=== PATIENT | female | born 1965 | race Caucasian/White ===

== ENCOUNTER 2017-11-22 21:02 | Emergency (ER) | payer MEDICAID ==
[2017-11-22 21:10] VITALS: BMI 27.8
[2017-11-22 21:41] LABS: BILIRUBIN,URINE NEGATIVE (NEGATIVE); BLOOD/HEMOGLOBIN,URINE 3+ (NEGATIVE); GLUCOSE, URINE NEGATIVE (NEGATIVE); KETONES,URINE NEGATIVE (NEGATIVE); LEUKOCYTE ESTERASE ,URINE 1+ (NEGATIVE); NITRITES,URINE NEGATIVE (NEGATIVE); PH,URINE 6.5 (5.0 - 8.0); PROTEIN,URINE 1+ (NEGATIVE); UROBILINOGEN,URINE NORMAL (NORMAL)
[2017-11-22 21:49] LABS: APPEARANCE,URINE CLEAR (CLEAR); BACTERIA,URINE TRACE /HPF (NEGATIVE); COLOR,URINE YELLOW (YELLOW); SQUAMOUS EPITHELIAL CELL,UR FEW /HPF (NEGATIVE)
--- NOTE | 2017-11-22 21:50 | DR.GENAD ---
HPI - PCP Primary Care Physician: NFD - Complaint/Symptoms Chief Complaint Doctors Comments: Patient reports that she injured her right shoulder/elbow four weeks ago and thinks she might have broken something. She admits to pain with movement of right upper extremity. She denies having shoulder evaluated at the time. Chief Complaint:: PT STATES" I FELL DOWN ABOUT 3 WEEKS AGO AND I THINK I BROKE MY ARM OR SOMETHING C/C/C EARS THROAT BURNING WHEN I PEE". PT POINTS TO RT ARM - Source History Provided: Patient - Mode of Arrival Mode of Arrival: Wheelchair - Timing Onset of Chief Complaint: 11/22/17 PMH - PMH Past Medical History: Yes Past Medical History: Hypertension Past Surgical History: Yes Surgical History: , Cholecystectomy, Hysterectomy, Ortho Surgery - Family History History of Family Medical Conditions: Yes Family Medical History: Hypertension - Social History Does patient currently use any type of tobacco product: Yes Have you used tobacco products in the last 12 months: Yes Type of Tobacco Use: Cigarettes Does any household member use tobacco: Yes Alcohol Use: Occasionally Do you use any recreational Drugs:: No Lives With: Family Lives Where: Home - infectious screening In the last 2 months have you had wt loss of >10#?: NO Have you had fever, night sweats or hemotysis?: No Have you traveled outside the country in the last 6 months?: No Isolation: Standard ROS - Review of Systems Eyes: No Symptoms Reported ENTM: No Symptoms Reported Respiratoy: No Symptoms Reported Cardiovascular: No Symptoms Reported Gastrointestinal/Abdominal: No Symptoms Reported Genitourinary: No Symptoms Reported Neurological: No Symptoms Reported Musculoskeletal: No Symptoms Reported Integumentary: No Symptoms Reported Hematologic/Lymphatic: No Symptoms Reported Endocrine: No Symptoms Reported Psychiatric: No Symptoms Reported All Other Systems: Reviewed and Negative PE - Vital Signs Vitals: Temperature 98.6 F Pulse Rate 94 Respiratory Rate 18 Blood Pressure 205/93 O2 Sat by Pulse Oximetry 97 - General Limitations: No Limitations General Appearance: Alert, In No Apparent Distress - Head Head Exam: Normal Inspection, Atraumatic - Eyes Eye exam: Normal Appearance, PERRL, EOMI - ENT ENT Exam: Normal Exam External Ear Exam: Normal External Inspection TM/Canal Exam: Bilateral Normal Nose Exam: Normal Nose Exam, Sinus Tenderness Mouth Exam: Normal Inspection Throat Exam: Normal Inspection - Neck Neck Exam: Normal Inspection, Full ROM - Chest Chest Inspection: Normal Inspection - Respiratory Respiratory Exam: Normal Lung Sounds Bilat Respiratory Exam: Bilateral Clear to Auscultation - Cardiovascular Cardiovascular Exam: Regular Rate, Normal Rhythm - Abdominal Exam Abdominal Exam: Normal Inspection, Normal Bowel Sounds Abdominal Tenderness: negative: RUQ, RLQ, LUQ, LLQ, Epigastrium, Suprapubic, Diffuse, Mild, Moderate, Severe, Other - Extremities Extremities Exam: Normal Inspection, Tenderness (admits to tenderness of right elbow and shoulder) - Back Back Exam: Normal Inspection, Full ROM - Neurologic Neurological Exam: Alert, Oriented X3, CN II-XII Intact - Psychiatric Psychiatric Exam: Normal Affect - Skin Skin Exam: Warm, Dry, Intact ROR - Labs Reviewed Laboratory Results Reviewed?: Yes (influenza A; Urine:Urine: 3+bld;+1Leuk;8- 10wbc) Laboratory: Specimen Type Clean catch urine 11/22/17 21:32 Urine Color Yellow (YELLOW) 11/22/17 21:32 Urine Appearance Clear (CLEAR) 11/22/17 21:32 Urine pH 6.5 (5.0 - 8.0) 11/22/17 21:32 Ur Specific [place] 1.010 (1.000-1.030) 11/22/17 21:32 Urine Protein 1+ (NEGATIVE) 11/22/17 21:32 Urine Glucose (UA) Negative (NEGATIVE) 11/22/17 21:32 Urine Ketones Negative (NEGATIVE) 11/22/17 21:32 Urine Occult Blood 3+ (NEGATIVE) 11/22/17 21:32 Urine Nitrite Negative (NEGATIVE) 11/22/17 21:32 Urine Bilirubin Negative (NEGATIVE) 11/22/17 21:32 Urine Urobilinogen Normal (NORMAL) 11/22/17 21:32 Ur Leukocyte Esterase 1+ (NEGATIVE) 11/22/17 21:32 Urine RBC 5-7 /HPF (NEGATIVE) 11/22/17 21:32 Urine WBC 8-10 /HPF (NEGATIVE) 11/22/17 21:32 Ur Squamous Epith Cells Few /HPF (NEGATIVE) 11/22/17 21:32 Urine Bacteria Trace /HPF (NEGATIVE) 11/22/17 21:32 Ur Culture Indicated? Yes/culture set up 11/22/17 21:32 Influenza Type A (PCR) Positive (NEGATIVE) A 11/22/17 21:32 Influenza Type B (PCR) Negative (NEGATIVE) 11/22/17 21:32 S. pyogenes (TEM-PCR) Not detected (NOT DETECT) 11/22/17 21:32 - XRAY XRAY Interpreted by: Radiologist (Right Elbow: No acute osseous abnormality, Right shoulder: There is no evidence of acute fracture or dislocation) - Diagnosis Discharge Problem: Influenza A UTI (urinary tract infection) Qualifiers: Urinary tract infection type: acute cystitis Hematuria presence: with hematuria Qualified Code(s): N30.01 - Acute cystitis with hematuria Contusion of shoulder, right Qualifiers: Encounter type: initial encounter Qualified Code(s): S40.011A - Contusion of right shoulder, initial encounter - Discharge Plan Condition: Stable - Follow ups/Referrals Follow ups/Referrals: NFD,None [Primary Care Provider] - 3 days - Instructions
[2017-11-22] MEDS ORDERED: TORADOL 60 MG VIAL IM ONE (21:59)
[2017-11-22] MEDS ORDERED: TORADOL 60 MG VIAL ONE (22:02)
--- NOTE | 2017-11-22 22:55 | RAD ---
HISTORY: Right elbow pain status post fall. Study: Three views of the right elbow. Comparison: None. Findings: No acute cortical disruption or dislocation can be identified. No significant soft tissue swelling o r effusion can be seen. IMPRESSION: No acute osseous abnormality. Reported By:
--- NOTE | 2017-11-22 23:28 | RAD ---
History: Fall. Pain in right shoulder and elbow. Study: Right shoulder three views Comparison: None. Findings: There is no evidence of acute fracture or dislocation. The right glenohumeral joint and acr omioclavicular joint are intact. There is some arthritic change at the right acromioclavicular joint. No significant soft tissue abnormality is identified. IMPRESSION: No evidence of acute osseous injury to the right shoulder. Reported By:
[2017-11-22 23:46] VITALS: BP 138/71
== END 2017-11-22 23:46 | disposition home or self-care (01) ==
LOC: ER 21:19
DX: J10.1 Influenza due to other identified influenza virus with other respiratory manifestations (principal); N39.0 Urinary tract infection, site not specified; S40.011A Contusion of right shoulder, initial encounter; W19.XXXA Unspecified fall, initial encounter; Y92.9 Unspecified place or not applicable
CPT/HCPCS: 73030; 73070; 81001; 87086; 87502; 87651; 96372; 99282; 99283; J1885